=== PATIENT | female | born 1975 | race Native Hawaiian/Other Pacific Islander ===

== ENCOUNTER 2019-03-07 15:57 | Emergency (ER) | payer BC ==
[~2019-03-07] VITALS: Ht 160 cm; Wt 124.7 kg
[2019-03-07 16:35] LABS: PLATELET COUNT 252 K/uL (152-353)
[2019-03-07 16:39] LABS: POTASSIUM 4.5 mmol/L (3.6-5.2); SODIUM 140 mmol/L (136-145)
[2019-03-07 19:41] VITALS: BP 167/72; TEMP 97.7
== END 2019-03-07 19:40 | disposition home or self-care (01) ==
LOC: ED 15:57
PROVIDERS: Emergency Medicine
DX: R07.89 Other chest pain (principal)
CPT/HCPCS: 80053; 82550; 82553; 84484; 85027; 93005; 99284

== ENCOUNTER 2020-07-12 13:57 | Emergency (ER) | payer BC ==
[~2020-07-12] VITALS: Ht 160 cm; Wt 121.6 kg
[2020-07-12 14:07] VITALS: TEMP 98.4
[2020-07-12 15:24] VITALS: BP 131/69
== END 2020-07-12 15:24 | disposition home or self-care (01) ==
LOC: ED 13:57
DX: U07.1 COVID-19 (principal); L03.113 Cellulitis of right upper limb
CPT/HCPCS: 87502; 87635; 99283; U0003